=== PATIENT | female | born 1990 | race Caucasian/White ===

== ENCOUNTER 2017-02-18 04:49 | Outpatient (CLI) | payer OTHER ==
[~2017-02-18] VITALS: Ht 162.6 cm; Wt 73.0 kg
[2017-02-18] MEDS ORDERED: FERR325C PO (05:09)
[2017-02-18] MEDS ORDERED: PRENAT PO (05:09)
[2017-02-18 05:42] VITALS: Ht 162.6 cm; Wt 73.0 kg
--- NOTE | 2017-02-18 06:39 | RADRPT ---
PROCEDURE: OB ultrasound for biophysical profile CLINICAL INDICATION: Contractions TECHNIQUE: Multiple sonographic images of the pelvis were obtained. Transabdominal views of the g ravid uterus are available for review. The images were reviewed on a PACS workstation. COMPARISON: None FINDINGS: breathing movement = 2/2 tone = 2/2 motion = 2/2 APPLE = 2/2 APPLE = 10.0 cm Single live intrauterine with cardiac activity of 136 bpm. position is cephal ic. The placenta is posterior. IMPRESSION: 1. Single live intrauterine gestation. 2. Biophysical profile = 8/8. 3. APPLE = 10.0 cm. RPTAT: HH .Ruth Ann King MD, MD Date Time Electronically viewed and signed by .Ruth Ann King MD, on 02/18/2017 06:39 .G/
--- NOTE | 2017-02-18 06:52 | PN ---
Triage Information Date/Time Weeks of Gestation 38+ : 4 Para: 3 Diabetes: none Hypertention: none Assessment/Plan No cervical change NST reassuring BPP 04/16 --->discharged with precautions --->patient's questions answered --->Follow up with FELIX THURMAN M.D. Feb 18, 2017 06:52
== END 2017-02-18 07:00 | disposition home or self-care (01) ==
LOC: OBT 04:49 → L-D 04:50 → OBT 07:00
PROVIDERS: ATTEND Obstetrics & Gynecology
DX: O26.893 Other specified pregnancy related conditions, third trimester (principal); Z3A.34 34 weeks gestation of pregnancy
CPT/HCPCS: 76818; Z7500; G0463

== ENCOUNTER 2017-02-23 08:00 | Inpatient (IN) | payer OTHER ==
[~2017-02-23] VITALS: Ht 160 cm; Wt 72.7 kg
[~2017-02-23 08:00] MED LIST: FERR325C PO; PRENAT PO
[2017-02-23] MEDS ORDERED: LACTATED RINGER'S 1,000 ML IV PRN (08:20)
[2017-02-23 08:45] VITALS: Ht 160 cm; Wt 72.7 kg
[2017-02-23 08:52] LABS: ADD SCAN DIFF NO
[2017-02-23] MEDS: LACTATED RINGER'S 1,000 ML IV SCH ×3 (08:57→16:43)
[2017-02-23] MEDS ORDERED: BUTORPHANOL 2 MG INJ IV PRN (09:00)
[2017-02-23] MEDS ORDERED: OXYTOCIN 30 UNITS/LR 500 ML IV SCH ×3 (09:00)
[2017-02-23] MEDS ORDERED: LIDOCAINE 1% (MPF) 30 ML INJ INJ PRN (09:00)
[2017-02-23] MEDS ORDERED: OXYTOCIN 30 UNITS/LR 500 ML IV PRN ×2 (09:00→23:30)
[2017-02-23] MEDS ORDERED: CARBOPROST 250 MCG INJ IM PRN ×2 (09:00→23:30)
[2017-02-23] MEDS ORDERED: IBUPROFEN 600 MG TAB PO PRN (09:00)
[2017-02-23] MEDS ORDERED: METHYLERGONOVINE 0.2 MG INJ IM PRN ×2 (09:00→23:30)
[2017-02-23] MEDS ORDERED: MISOPROSTOL 200 MCG TAB PR PRN ×2 (09:00→23:30)
[2017-02-23] MEDS ORDERED: AMPICILLIN 2 GM/NS (PMX) 100 ML IV ONE (09:00)
[2017-02-23 09:06] LABS: BASOPHILS % 0.1 % (0.0-2.0); EOSINOPHILS % 0.6 % (0.0-7.0); HEMATOCRIT 30.5 % (37.0-47.0); HEMOGLOBIN 9.6 g/dl (12.0-16.0); LYMPHOCYTES # 1.3 10^3/ul (0.8-2.9); LYMPHOCYTES % 18.4 % (15.0-51.0); MEAN CORPUSCULAR HEMOGLOBIN 25.5 pg (29.0-33.0); MEAN CORPUSCULAR HGB CONC 31.5 g/dl (32.0-37.0); MEAN CORPUSCULAR VOLUME 81.1 fl (82.0-101.0); MEAN PLATELET VOLUME 10.4 fl (7.4-10.4); MONOCYTE # 0.4 10^3/ul (0.3-0.9); MONOCYTES % 5.7 % (0.0-11.0); NEUTROPHIL # 5.1 10^3/ul (1.6-7.5); PLATELET COUNT 226 10^3/UL (140-415); RED BLOOD COUNT 3.76 10^6/ul (4.20-5.40); RED CELL DISTRIBUTION WIDTH 14.4 % (11.5-14.5); WHITE BLOOD COUNT 6.9 10^3/ul (4.8-10.8)
[2017-02-23 09:40] LABS: INR 0.98; PARTIAL THROMBOPLASTIN TIME 25.8 Sec (25.0-35.0)
--- NOTE | 2017-02-23 15:04 | HP ---
Date/Time of Note Date/Time of Note DATE: 02/23/17 TIME: 15:01 OB - History Hx of Present Chief Complaint: induction of labor Estimated Due Date: Feb 28, 2017 : 4 Para: 3 Spontaneous : 0 Therapeutic : 0 Care: Good Care Ultrasounds: Normal mid trimester US Obstetrical Complications: None Medical Complications: None Past Family/Social History * Past Medical, Surgical, Family and Obstetric Histories reviewed from chart. GBS Status: Positive OB Admission Exam Physical Exam HEENT: WNL Heart: Rhythm Normal Lungs: Clear Abdomen: WNL Extremities: Normal Cervical Dilatation: 2cm Effacement: 50% Station: -1 Membranes: Intact Heart Rate: 130's Accelerations: Accelerations Present Decelerations: No Decelerations Varibility: Moderate Last 72 hours Lab Results CBC & BMP 02/23/17 08:30 OB Assessment/Plan Reason for admission: induction of labor Plan: Induction Induction Method: per Pitocin Protocol SARAH GALLO MD Feb 23, 2017 15:03
[2017-02-23] MEDS ORDERED: FENTAnyl 2MCG/ML-ROPIV 0.2% 100 ML ONE (15:30)
[2017-02-23] MEDS ORDERED: ONDANSETRON 4 MG INJ ONE (16:38)
[2017-02-23] MEDS: AMPICILLIN 1 GM/NS (PMX) 50 ML IV SCH ×3 (16:43→20:54)
--- NOTE | 2017-02-23 21:40 | LDN ---
Date/Time of Note Date/Time of Note DATE: 02/23/17 TIME: 21:38 Delivery Summary Weeks of Gestation 39 weeks and 2 days Placenta Delivered: Spontaneously Meconium: none Episiotomy: No Perineal laceration: 0 Anesthesia type: Epidural Estimated blood loss: 400 Sponge & Needle done & correct: Yes All needle counts correct: Yes Any foreign bodies felt in the: No Problems: Infant Delivery Information Sex Infant Sex: male Apgars 1 Minute: 9 5 Minute: 9 Suctioning Nose & mouth suctioned at donna: Yes Delee suction performed: No Umbilical Cord Umbilical cord with: 3 Vessels Cord presentations: nuchal cord Nuchal cord present X: 1 Cord Blood was obtained: Yes Mother & Baby Disposition Disposition Mom & Baby to Maternity; Good: Yes SARAH GALLO MD Feb 23, 2017 21:40
[2017-02-23] MEDS: ONDANSETRON 4 MG INJ IV PRN ×2 (22:05→22:07)
[2017-02-23 23:15] VITALS: BP 121/65; RESP 20
[2017-02-23] MEDS ORDERED: ACETAMINOPHEN/CODEINE #3 TAB PO PRN (23:30)
[2017-02-23] MEDS ORDERED: ACETAMINOPHEN 325 MG TAB PO PRN (23:30)
[2017-02-23] MEDS ORDERED: DIBUCAINE 1% 30 GM OINT PR PRN (23:30)
[2017-02-23] MEDS: IBUPROFEN 600 MG TAB PO SCH (23:59)
[2017-02-24] MEDS: LACTATED RINGER'S 1,000 ML IV* SCH ×2 (02:11→07:28)
[2017-02-24 03:33] VITALS: BP 109/65; RESP 18
[2017-02-24] MEDS: BENZOCAINE 20% 56 ML SPRAY TOP PRN (03:37)
[2017-02-24] MEDS: WITCH HAZEL/GLYCERIN PAD PR PRN (03:37)
[2017-02-24] MEDS: IBUPROFEN 600 MG TAB PO SCH ×4 (05:40→23:47)
[2017-02-24 07:35] LABS: ADD SCAN DIFF NO
[2017-02-24 07:45] LABS: BASOPHILS % 0.1 % (0.0-2.0); EOSINOPHILS % 0.2 % (0.0-7.0); HEMATOCRIT 29.2 % (37.0-47.0); HEMOGLOBIN 9.2 g/dl (12.0-16.0); LYMPHOCYTES # 1.6 10^3/ul (0.8-2.9); LYMPHOCYTES % 13.7 % (15.0-51.0); MEAN CORPUSCULAR HEMOGLOBIN 25.8 pg (29.0-33.0); MEAN CORPUSCULAR HGB CONC 31.5 g/dl (32.0-37.0); MEAN CORPUSCULAR VOLUME 81.8 fl (82.0-101.0); MEAN PLATELET VOLUME 10.9 fl (7.4-10.4); MONOCYTE # 0.9 10^3/ul (0.3-0.9); MONOCYTES % 7.6 % (0.0-11.0); NEUTROPHIL # 9.2 10^3/ul (1.6-7.5); NEUTROPHILS % 77.6 % (39.0-77.0); NUCLEATED RED BLOOD CELLS% 0.3 /100WBC (0.0-0.0); PLATELET COUNT 197 10^3/UL (140-415); RED BLOOD COUNT 3.57 10^6/ul (4.20-5.40); RED CELL DISTRIBUTION WIDTH 14.4 % (11.5-14.5); WHITE BLOOD COUNT 11.8 10^3/ul (4.8-10.8)
[2017-02-24 08:00] VITALS: BP 108/75; PULSE 64; RESP 18
[2017-02-24] MEDS ORDERED: LANOLIN 7 GM TUBE TOP PRN (08:30)
[2017-02-24] MEDS: SENNA/DOCUSATE NA (8.6MG/50MG) TAB PO SCH ×2 (08:39→20:43)
[2017-02-24 15:40] VITALS: BP 98/66; PULSE 64; RESP 16
--- NOTE | 2017-02-24 16:58 | DS ---
Date/Time of Note Date/Time of Note DATE: 02/24/17 TIME: 16:58 Obstetrical Discharge Record Final Diagnosis Final Diagnosis: Term delivered Vaginal Delivery Obstetrical Delivery: Spontaneous Complications Augmentation: Yes Condition on Discharge Physical Assessment Voiding: Yes Bowel Movement: Yes Breast: Soft, non-tender Fundus: Firm Calf Tenderness: No Patient Condition: Stable SARAH GALLO MD Feb 24, 2017 16:58
[2017-02-24 19:45] VITALS: BP 110/71; PULSE 61; RESP 18
[2017-02-25 03:53] VITALS: BP 105/63; PULSE 53; RESP 18
[2017-02-25] MEDS: IBUPROFEN 600 MG TAB PO SCH ×3 (05:35→17:34)
[2017-02-25] MEDS: BENZOCAINE 20% 56 ML SPRAY TOP PRN (05:35)
[2017-02-25 08:00] VITALS: BP 113/57; PULSE 57; RESP 19
[2017-02-25] MEDS ORDERED: DIPHTH/TET/ACEL PERTUSS (ADULT) 0.5 ML VIAL IM* ONE (09:00)
[2017-02-25] MEDS: WITCH HAZEL/GLYCERIN PAD PR PRN (09:28)
[2017-02-25] MEDS: SENNA/DOCUSATE NA (8.6MG/50MG) TAB PO SCH (09:28)
== END 2017-02-25 17:00 | disposition home or self-care (01) | DRG 775 ==
LOC: L-D 08:02 → PP1 23:08
PROVIDERS: ADMIT Obstetrics & Gynecology; ATTEND Obstetrics & Gynecology
PROC: 3E033VJ Introduction of Other Hormone into Peripheral Vein, Percutaneous Approach (ICD-10-PCS; 2017-02-23)
PROC: 10E0XZZ Delivery of Products of Conception, External Approach (ICD-10-PCS; principal; 2017-02-23 08:00)
PROC: 3E00X4Z Introduction of Serum, Toxoid and Vaccine into Skin and Mucous Membranes, External Approach (ICD-10-PCS; 2017-02-25)
DX: O69.81X0 Labor and delivery complicated by cord around neck, without compression, not applicable or unspecified (principal); Z23 Encounter for immunization; Z3A.39 39 weeks gestation of pregnancy; Z37.0 Single live birth
CPT/HCPCS: 62319; 85025; 85610; 85730; 86592; 86900; 86901; 90715; J0290; J2210; J2405; J2590; J3010; J7120

== ENCOUNTER 2017-07-23 07:07 | Day surgery (SDC) | payer OTHER ==
[~2017-07-23] VITALS: Ht 162.6 cm; Wt 53.3 kg
[2017-07-23] VITALS (15 sets, daily range): BP systolic 86–136; BP diastolic 52–87; PULSE 50–83; RESP 11–26; Ht 162.6 cm; Wt 53.3 kg
[2017-07-23 07:51] LABS: BASOPHILS % 0.2 % (0.0-2.0); EOSINOPHILS # 0.1 10^3/ul (0.0-0.5); EOSINOPHILS % 2.4 % (0.0-7.0); HEMATOCRIT 38.5 % (37.0-47.0); HEMOGLOBIN 12.8 g/dl (12.0-16.0); LYMPHOCYTES # 1.8 10^3/ul (0.8-2.9); LYMPHOCYTES % 33.3 % (15.0-51.0); MEAN CORPUSCULAR HEMOGLOBIN 28.4 pg (29.0-33.0); MEAN CORPUSCULAR HGB CONC 33.2 g/dl (32.0-37.0); MEAN CORPUSCULAR VOLUME 85.4 fl (82.0-101.0); MEAN PLATELET VOLUME 9.9 fl (7.4-10.4); MONOCYTE # 0.4 10^3/ul (0.3-0.9); NEUTROPHIL # 3.1 10^3/ul (1.6-7.5); NEUTROPHILS % 56.9 % (39.0-77.0); PLATELET COUNT 288 10^3/UL (140-415); RED BLOOD COUNT 4.51 10^6/ul (4.20-5.40); RED CELL DISTRIBUTION WIDTH 13.9 % (11.5-14.5); WHITE BLOOD COUNT 5.4 10^3/ul (4.8-10.8)
[2017-07-23] MEDS ORDERED: BUPIVACAINE 0.5%/EPI (SDV) 30 ML INJ ONE (10:56)
[2017-07-23] MEDS ORDERED: MIDAZOLAM 1 MG/ML 2 ML INJ ONE (10:58)
[2017-07-23] MEDS ORDERED: FENTAnyl 50 MCG/ML VIAL ONE (10:59)
[2017-07-23] MEDS ORDERED: PHENYLephrine (100 MCG/ML) 5ML SYG ONE (11:10)
--- NOTE | 2017-07-23 11:41 | PREOPHP ---
DATE OF ADMISSION: 07/23/2017 HISTORY: A 27-year-old female, 7, para 5, AB 2, requests sterilization by bilateral tubal l igation. PAST MEDICAL HISTORY: Unremarkable. PAST SURGICAL HISTORY: Unremarkable. ALLERGIES: NO KNOWN ALLERGIES. FAMILY HISTORY: Hypertension and brain cancer. PHYSICAL EXAMINATION GENERAL: The patient is afebrile. Vital signs stable. HEENT: Examination of head, neck and chest within normal limits. ABDOMEN: Soft, nontender, nondistended. PELVIC: Normal. EXTREMITIES: Within normal limits. NEUROLOGIC: Within normal limits. IMPRESSION: Voluntary sterilization. PLAN: Minilaparotomy, bilateral tubal ligation. Risks, benefits and alternatives of the procedure were explained to the patient. The patient has been counseled about all of her contraceptive option s including all methods of sterilization. It was explained to the patient that with bilateral tubal ligation there is a chance of failure resulting in ectopic and/or intrauterine . After counseling, the patient said she understood and gave informed consent for the procedure. Dictated By: SARAH ONEILL/KRYSTAL Conf#: [id number] DID#: [id number]
[2017-07-23] MEDS ORDERED: ONDANSETRON 4 MG INJ ONE (12:07)
[2017-07-23] MEDS ORDERED: ROCURONIUM 50 MG INJ ONE (12:17)
[2017-07-23] MEDS ORDERED: LIDOCAINE 2% (SDV) 5 ML INJ ONE (12:17)
[2017-07-23] MEDS ORDERED: GLYCOPYRROLATE 0.4 MG INJ ONE (12:17)
[2017-07-23] MEDS ORDERED: PROPOFOL 20 ML ONE (12:17)
[2017-07-23] MEDS ORDERED: CEFAZOLIN 1 GM INJ ONE (12:17)
[2017-07-23] MEDS ORDERED: NEOSTIGMINE 3 MG/3 ML SYRINGE ONE (12:17)
--- NOTE | 2017-07-23 12:37 | SIPON ---
Date/Time of Note Date/Time of Note DATE: 07/23/17 TIME: 12:35 Operative Report Preoperative Diagnosis Voluntary sterilization Postoperative Diagnosis Same Operation/Procedure Performed Minilaparotomy BTL Surgeon Sarah Gallo MD medical billing assistant senior health physics technician Anesthesia: general Estimated blood loss: minimal Transfusion Required none Specimen right and left Fallopian tubes Grafts/Implants none Complications none SARAH GALLO MD Jul 23, 2017 12:37
[2017-07-23] MEDS ORDERED: KETOROLAC 30 MG INJ ONE (12:42)
[2017-07-23] MEDS ORDERED: ONDANSETRON 4 MG INJ IV PRN ×2 (13:00→13:30)
[2017-07-23] MEDS ORDERED: morphine 2 MG INJ IV PRN (13:00)
[2017-07-23] MEDS ORDERED: HYDROCODONE/APAP (5/325) TAB PO PRN (13:00)
[2017-07-23] MEDS ORDERED: KETOROLAC 30 MG INJ IV PRN (13:00)
[2017-07-23] MEDS ORDERED: HYDROmorphONE (0.2 MG/ML) 10ML SYG IV ONE (13:03)
[2017-07-23] MEDS ORDERED: FENTAnyl 50 MCG/ML VIAL IV PRN ×3 (13:30)
[2017-07-23] MEDS ORDERED: hydrALAzine 20 MG INJ IV PRN (13:30)
[2017-07-23] MEDS ORDERED: LABETALOL HCL 20MG INJ IV PRN (13:30)
[2017-07-23] MEDS ORDERED: MEPERIDINE 25 MG INJ IV PRN (13:30)
[2017-07-23] MEDS ORDERED: HYDROmorphONE (0.2 MG/ML) 10ML SYG IV PRN ×4 (13:30)
[2017-07-23] MEDS ORDERED: DIPHENHYDRAMINE 50 MG INJ IV PRN (13:30)
[2017-07-23] MEDS ORDERED: METOCLOPRAMIDE 10 MG INJ IV PRN (13:30)
--- NOTE | 2017-07-23 13:58 | OPR ---
DATE OF OPERATION: 07/23/2017 PREOPERATIVE DIAGNOSIS: Voluntary sterilization. POSTOPERATIVE DIAGNOSIS: Voluntary sterilization. OPERATION PERFORMED: Minilaparotomy, bilateral tubal ligation. SURGEON: Sarah Craig MD CLASSIFIED ADVERTISING MANAGER: business technology professor. ANESTHESIA: General. ANESTHESIOLOGIST: Dr. Weiss. PROCEDURE: The patient was taken to the operating room and placed on the operating table in supine position. After adequate general anesthesia was given, the area was prepared and draped in the usua l sterile fashion. Using a scalpel, Pfannenstiel incision was made about 2 fingerbreadths above the symphysis pubis. T he incision was carried to the fascia. The fascia was incised and extended bilaterally with Bovie. Two Kya's were used to separate the fascia from the muscle. The muscle was dissected down to pe ritoneum. The peritoneum was secured with 2 Kellys and incised with Metzenbaum scissors. The right fallopian tube was grasped with a Houston clamp and followed to its fimbrial end to confirm its hortensia ntity. Using 0 plain suture ligature, a 5 cm segment of the right fallopian tube was doubly ligated . Using Metzenbaum scissors, a portion of the right fallopian tube above the ligated area was excis ed and sent to pathology. Same procedure was repeated on the left fallopian tube. After assuring h emostasis, the muscle was reapproximated with 0 chromic. The fascia was closed with 0 Vicryl contin uous and subcutaneous tissue was reapproximated with 2-0 chromic. Skin was closed with gonzalez. ESTIMATED BLOOD LOSS: Minimal. COUNTS: All counts were correct. Dictated By: SARAH ONEILL/KRYSTAL Conf#: [id number] DID#: [id number]
== END 2017-07-23 16:30 | disposition home or self-care (01) ==
LOC: SDS 07:07
PROVIDERS: ATTEND Obstetrics & Gynecology
DX: Z30.2 Encounter for sterilization (principal)
CPT/HCPCS: 58600; 84703; 85025; 86850; 86900; 86901; 88302; J0690; J1170; J1885; J2250; J2270; J2405; J2710; J3010; Z7512; Z7610; J2370